=== PATIENT | female | born 1995 | race American Indian/Alaskan Native ===

== ENCOUNTER 2019-12-26 15:12 | Outpatient (CLI) | payer OTHER ==
--- NOTE | 2019-12-26 17:51 | Ultrasound Report ---
ULTRASOUND OBSTETRIC LIMITED ULTRASOUND BIOPHYSICAL PROFILE INDICATION / CLINICAL INFORMATION: MANDEEP. well-being Clinical Gestational Age (GA): 37 weeks 3 days COMPARISON: None available. FINDINGS: BREATHING MOVEMENT = 2 GROSS BODY MOVEMENT = 2 TONE = 2 QUALITATIVE AMNIOTIC FLUID VOLUME = 2 TOTAL BIOPHYSICAL SCORE = 8/8 HEART RATE (beats per minute): 140 AMNIOTIC FLUID INDEX (cm) = 14.2 (normal = 7-24 cm) PRESENTATION: Cephalic. ADDITIONAL FINDINGS: Posterior placenta without previa or abruption. IMPRESSION: 1. Biophysical Score = 8/8 2. MANDEEP 14.2 cm Signer Name: Kane Hodges MD Signed: 12/26/2019 5:47 PM Workstation Name: [id number]
[2019-12-26 19:11] VITALS: BP 101/71
[2019-12-26] MEDS ORDERED: LACTATED RINGERS 1,000 ML ONE (19:31)
[2019-12-26] MEDS ORDERED: LACTATED RINGERS 1,000 ML IV ONE (19:44)
== END 2019-12-26 20:55 | disposition home or self-care (01) ==
LOC: TRG 15:12 → APU 15:12 → TRG 20:55
PROVIDERS: ATTEND Obstetrics & Gynecology
DX: O47.1 False labor at or after 37 completed weeks of gestation (principal); Z3A.37 37 weeks gestation of pregnancy
CPT/HCPCS: 76815; 76819; J7120